=== PATIENT | male | born 1980 | race Hispanic/Latino ===

== ENCOUNTER 2016-12-04 18:40 | Emergency (ER) | payer SELFPAY ==
[2016-12-04 18:48] VITALS: BMI 33.9
[2016-12-04 18:53] VITALS: TEMP 98.9
[2016-12-04] MEDS ORDERED: Sodium Chloride 0.9% 1,000 ML IV STA (18:59)
--- NOTE | 2016-12-04 19:05 | ED PDOC ---
Arrival/HPI - General Chief Complaint: Cough, Cold, Congestion Time Seen by Provider: 12/04/16 18:59 Historian: Patient - History of Present Illness Narrative History of Present Illness (Text): 12/04/16 19:02 35 y/o male, no pmh, nkda, c/o coughing/fever and bodyache x 2 days with no recent traveling for the past 3 weeks. Productive coughing, associated with the fever with unknown tmax, took motrin 2 hours prior to the arrival, stated that he has bodyache as well, no neck stiffness, no headache, no night sweat, no dizziness, no numbness or tinging, no other medical or psychological complaints. Past Medical History - Provider Review Nursing Documentation Reviewed: Yes - Cardiac Hx Cardiac Disorders: No - Pulmonary Hx Respiratory Disorders: No - Neurological Hx Neurological Disorder: No - HEENT Hx HEENT Disorder: No - Renal Hx Renal Disorder: No - Endocrine/Metabolic Hx Endocrine Disorders: No - Hematological/Oncological Hx Blood Disorders: No - Integumentary Hx Dermatological Disorder: No - Musculoskeletal/Rheumatological Hx Musculoskeletal Disorders: No - Gastrointestinal Hx Gastrointestinal Disorders: No - Genitourinary/Gynecological Hx Genitourinary Disorders: No - Psychiatric Hx Psychophysiologic Disorder: No Hx Substance Use: No Family/Social History - Physician Review Nursing Documentation Reviewed: Yes Family/Social History: Unknown Family HX Smoking Status: Never Smoked Hx Alcohol Use: Yes Frequency of alcohol use: Socially Hx Substance Use: No Allergies/Home Meds Allergies/Adverse Reactions: Allergies iodine Allergy (Verified 12/04/16 18:48) ITCHING shellfish derived Allergy (Verified 12/04/16 18:48) ITCHING Review of Systems - Review of Systems Constitutional: Fatigue, Fevers Eyes: absent: Vision Changes ENT: absent: Hearing Changes, Rhinorrhea Respiratory: Cough. absent: SOB, Sputum Cardiovascular: absent: Chest Pain Gastrointestinal: absent: Abdominal Pain, Nausea, Vomiting Musculoskeletal: Myalgias. absent: Arthralgias, Back Pain Skin: absent: Rash, Pruritis, Skin Lesions Neurological: absent: Headache, Dizziness, Focal Weakness Physical Exam Vital Signs Reviewed: Yes Vital Signs Temp Pulse Resp BP Pulse Ox 12/04/16 20:19 98 H 18 134/74 95 12/04/16 18:50 98.9 F 98 H 20 130/86 97 12/04/16 18:49 98.6 F 98 H 20 130/86 96 Temperature: Afebrile Blood Pressure: Normal Pulse: Regular Respiratory Rate: Normal Appearance: Positive for: Well-Appearing, Non-Toxic, Comfortable Pain Distress: Moderate Mental Status: Positive for: Alert and Oriented X 3 - Systems Exam Head: Present: Atraumatic, Normocephalic Pupils: Present: PERRL Extroacular Muscles: Present: EOMI Conjunctiva: Present: Normal Ears: Present: NORMAL TM, Normal Canal. No: Erythema Mouth: Present: Moist Mucous Membranes Pharnyx: No: ERYTHEMA, EXUDATE, TONSILS ENLARGED, Uvular Deviation Nose (External): Present: Atraumatic. No: Abrasion, Contusion, Laceration Nose (Internal): Present: Normal Inspection, No Active Bleeding, Rhinorrhea. No : Septal Hematoma, Epistaxis Neck: Present: Normal Range of Motion, Trachea Midline. No: Meningeal Signs, MIDLINE TENDERNESS, Paraspinal Tenderness, Lymphadenopathy Respiratory/Chest: Present: Clear to Auscultation, Good Air Exchange. No: Respiratory Distress, Accessory Muscle Use, Wheezes, Decreased Breath Sounds, Rales, Retracting, Rhonchi Cardiovascular: Present: Regular Rate and Rhythm, Normal S1, S2. No: Murmurs Abdomen: Present: Normal Bowel Sounds. No: Tenderness, Distention, Peritoneal Signs, Rebound, Guarding Back: Present: Normal Inspection Upper Extremity: Present: Normal Inspection. No: Cyanosis, Edema Lower Extremity: Present: Normal Inspection. No: Edema Neurological: Present: GCS=15, Speech Normal, Motor Func Grossly Intact, Gait Normal, Memory Normal Skin: Present: Warm, Dry, Normal Color. No: Rashes Psychiatric: Present: Alert, Oriented x 3, Normal Insight, Normal Concentration Medical Decision Making ED Course and Treatment: 12/04/16 19:06 -labs/rapid flu -chest xray -IVF/tylenol -Observe and reaseess 12/04/16 20:25 -Labs are non-significant -negative influenza but clinical suspicious is high. -chest xray show increase interstial marking without clear evidence of consolidation. -Case discussed with DR. Loza, and agreed on the dispo for outpatient follow up. -Pt. received 2L of IVF and tylenol, HR decrease from 98 to low 70s, symptoms resolved and feeling much better, azithromycin and tamiflu ordered. -Discharge home with azithromycin, tamiflu, tylenol, promethazine dm, stay hydrated, follow up with your own pmd within 2 days, return to the ER for any new or worsening signs or symptoms. - Lab Interpretations Lab Results: 12/04/16 19:10 12/04/16 19:10 Lab Results 12/04/16 19:10: WBC 9.5, RBC 5.15, Hgb 15.9, Hct 44.6, MCV 86.6, MCH 30.9, MCHC 35.7, RDW 12.6, Plt Count 185, MPV 9.5, Gran % 71.5 H, Lymph % (Auto) 15.6 L, Spink % (Auto) 12.6 H, Eos % (Auto) 0.0 L, Baso % (Auto) 0.3, Gran # 6.76 H, Lymph # 1.5, Spink # 1.2 H, Eos # 0.0, Baso # 0.03 12/04/16 19:10: Sodium 138, Potassium 4.1, Chloride 103, Carbon Dioxide 27, Anion Gap 12, BUN 16, Creatinine 1.1, Est GFR ( Amer) > 60, Est GFR (Non- Af Amer) > 60, Random Glucose 103, Calcium 9.1, Total Bilirubin 1.3, AST 33, ALT 35, Alkaline Phosphatase 77, Total Protein 7.6, Albumin 4.4, Globulin 3.2, Albumin/Globulin Ratio 1.4 12/04/16 19:10: Influenza Typ A,B (EIA) Negative for flu a/b I have reviewed the lab results: Yes Interpretation: No clinic. lab abnormalty - RAD Interpretation Radiology Orders: 12/04/16 18:59 CHEST PORTABLE [RAD] Stat FINDINGS: Low level of inspiratory effort causing crowding of bronchovascular markings and increased prominence of the cardiomediastinal silhouette, limiting evaluation. Prominence of perihilar markings. No definitive focal consolidation. IMPRESSION: Low level of inspiratory effort causing crowding of bronchovascular markings and increased prominence of the cardiomediastinal silhouette, limiting evaluation. Prominence of perihilar markings. No definitive focal consolidation. Correlate clinically. Followup as warranted. Thank you for allowing us to participate in the care of your patient. Dictated and Authenticated by: Lazara Engle MD 12/04/2016 8:21 PM Eastern Time ([place] & [place]) Inter Com Servicer: Radiologist - Medication Orders Current Medication Orders: Azithromycin (Zithromax) 500 mg PO STAT STA PRN Reason: Protocol Stop: 12/04/16 20:23 Sodium Chloride (Sodium Chloride 0.9%) 1,000 mls @ 500 mls/hr IV .Q2H BRODY Last Admin: 12/04/16 20:05 Dose: 500 mls/hr eMAR Start Stop Document 12/04/16 20:05 JOL (Rec: 12/04/16 20:05 YUMIKOL [id number]) Intravenous Solution Start Date 12/04/16 Start Time 20:05 End Date 12/04/16 End time 22:05 Total Infusion Time 120 Oseltamivir Phosphate (Tamiflu Cap) 75 mg PO STAT STA PRN Reason: Protocol Stop: 12/04/16 20:23 Discontinued Medications Acetaminophen (Tylenol 325mg Tab) 650 mg PO STAT STA Stop: 12/04/16 19:00 Last Admin: 12/04/16 19:28 Dose: 650 mg MAR Pain/Vitals Document 12/04/16 19:28 JOL (Rec: 12/04/16 19:28 ARIADNE [id number]) Pain Reassessment Is This A Pain ReAssessment? No Sleep Is patient sleeping during reassessment? No Presence of Pain Presence of Pain Yes Pain Scale Used Pain Scale Used Numeric Location Pain Location Body Site Generalized Sodium Chloride (Sodium Chloride 0.9%) 1,000 mls @ 999 mls/hr IV .Q1H1M STA Stop: 12/04/16 19:59 Last Admin: 12/04/16 19:28 Dose: 999 mls/hr eMAR Start Stop Document 12/04/16 19:28 JOL (Rec: 12/04/16 19:28 ARIADNE [id number]) Intravenous Solution Start Date 12/04/16 Start Time 19:28 End Date 12/04/16 End time 20:28 Total Infusion Time 60 - PA / [employer] / Resident Statement / has reviewed & agrees with the documentation as recorded. Disposition/Present on Arrival - Present on Arrival Any Indicators Present on Arrival: No History of DVT/PE: No History of Uncontrolled Diabetes: No Urinary Catheter: No History of Decub. Ulcer: No History Surgical Site Infection Following: None - Disposition Have Diagnosis and Disposition been Completed?: Yes Diagnosis: Flu-like symptoms, URI (upper respiratory infection) Disposition: HOME/ ROUTINE Disposition Time: 20:27 Patient Plan: Discharge Condition: IMPROVED Additional Instructions: -Discharge home with azithromycin, tamiflu, tylenol, promethazine dm, stay hydrated, follow up with your own pmd within 2 days, return to the ER for any new or worsening signs or symptoms. Prescriptions: Acetaminophen [Tylenol 325mg tab] 2 tab PO QID PRN #30 tab PRN Reason: Other Azithromycin 250 mg PO DAILY #4 tab Oseltamivir [Tamiflu] 75 mg PO BID #9 cap Promethazine DM [Phenergan DM Syrup] 5 ml PO QID PRN #250 ml PRN Reason: Other Referrals: PCP,NO [Primary Care Provider] - [place] up [place] [facility] [place] - Follow up with primary Forms: [employer] ([employer]), WORK NOTE
[2016-12-04 19:27] LABS: BASO # 0.03 K/mm3 (0.0-2.0); BASO % 0.3 % (0.0-3.0); GRAN # 6.76 (1.4-6.5); GRAN % 71.5 % (50.0-68.0); HEMATOCRIT 44.6 % (42.0-52.0); LYMPH # 1.5 (1.2-3.4); LYMPH % 15.6 % (22.0-35.0); MEAN CELL VOLUME 86.6 fl (80.0-105.0); MEAN CORPUSCULAR HEMOGLOBIN 30.9 pg (25.0-35.0); MEAN CORPUSCULAR HGB CONC 35.7 g/dl (31.0-37.0); MEAN PLATELET VOLUME 9.5 fl (7.0-11.0); MONO # 1.2 (0.1-0.6); MONO % 12.6 % (1.0-6.0); RED CELL DISTRIBUTION WIDTH 12.6 % (11.5-14.5); WHITE BLOOD COUNT 9.5 10^3/ul (4.5-11.0)
[2016-12-04 19:35] LABS: ALB/GLOB RATIO 1.4 (1.1-1.8); ALKALINE PHOSPHATASE 77 U/L (38-126); ALT/SGPT 35 U/L (7-56); AST/SGOT 33 U/L (17-59); BILIRUBIN,TOTAL 1.3 mg/dL (0.2-1.3); BLOOD UREA NITROGEN 16 mg/dL (7-21); CALCIUM 9.1 mg/dL (8.4-10.5); CARBON DIOXIDE 27 mmol/L (21-33); CHLORIDE 103 mmol/L (98-107); GFR AFRICAN-AMERICAN > 60; GLUCOSE,RANDOM 103 mg/dL (70-110); POTASSIUM 4.1 mmol/L (3.6-5.0); SODIUM 138 mmol/L (132-148); TOTAL PROTEIN 7.6 g/dL (5.8-8.3)
[2016-12-04] MEDS ORDERED: Sodium Chloride 0.9% 1,000 ML IV SCH (19:45)
[2016-12-04 20:20] VITALS: BP 134/74
--- NOTE | 2016-12-04 20:22 | RAD ---
EXAM: XR Chest, 1 View CLINICAL HISTORY: 35 years old, male; Signs and symptoms; Cough; Symptoms not specified; Additional info: Cough/fever TECHNIQUE: Frontal view of the chest. COMPARISON: No relevant prior studies available. FINDINGS: Low level of inspiratory effort causing crowding of bronchovascular markings and increased prominence of the cardiomediastinal silhouette, limiting evaluation. Prominence of perihilar markings. No definitive focal consolidation. IMPRESSION: Low level of inspiratory effort causing crowding of bronchovascular markings and increased prominence of the cardiomediastinal silhouette, limiting evaluation. Prominence of perihilar markings. No definitive focal consolidation. Correlate clinically. Followup as warranted.
[2016-12-04 20:49] VITALS: PULSE 76; RESP 20; O2SAT 97
== END 2016-12-04 20:49 | disposition home or self-care (01) ==
LOC: ED 18:40
DX: J11.1 Influenza due to unidentified influenza virus with other respiratory manifestations (principal)
CPT/HCPCS: 71010; 80053; 85025; 87804; 96360; 96361; 99284; J7040